=== PATIENT | female | born 1990 | race African-American/Black ===

== ENCOUNTER 2019-03-19 09:20 | Emergency (ER) | payer MEDICAID, OTHER ==
[~2019-03-19] VITALS: Ht 160 cm; Wt 81.6 kg
[2019-03-19] MEDS ORDERED: KETOROLAC 30 MG/ML VIAL IVP ONE (09:30)
[2019-03-19 09:38] LABS: BILIRUBIN,URINE NEGATIVE (NEGATIVE); CLARITY,URINE CLEAR; COLOR,URINE YELLOW; GLUCOSE, URINE (UA) NEGATIVE (NEGATIVE); KETONES,URINE 2+ (NEGATIVE); LEUKOCYTE ESTERASE ,URINE NEGATIVE (NEGATIVE); NITRITE,URINE NEGATIVE (NEGATIVE); PH,URINE 6 (5-9); PROTEIN,URINE NEGATIVE (NEGATIVE); UROBILINOGEN,URINE NORMAL (NORMAL)
--- NOTE | 2019-03-19 09:38 | ED Abdominal Pain ---
General Chief Complaint: Abdominal/GI Problems Stated Complaint: R SIDE ABD PAIN Source of Information: Patient Exam Limitations: No Limitations (ISIAH MORTON) History of Present Illness Date Seen by Provider: Mar 19, 2019 Time Seen by Provider: 09:20 Initial Comments The patient presents to the ER by private conveyance with chief complaint she started having moderate to severe pain starting last night after cooking chicken for dinner within an hour. She says she's had this pain before with certain foods that she eats but never this severe. Today she rates it as 8 out of 10, stabbing in the right upper quadrant. It does not radiate. She has no dysuria, hematuria. She does not take any control. She denies any chest pain shortness of breath cough fevers or chills or nausea. She has no history of abdominal surgeries or trauma. She has not taken any antacids or pain medicine. Last oral intake was last night at dinnertime. No significant medical history. (ISIAH MORTON) Allergies and Home Medications Allergies Coded Allergies: aspirin (Verified Allergy, Unknown, 03/19/19) Home Medications No Active Prescriptions or Reported Meds Patient Home Medication List Home Medication List Reviewed: Yes (ISIAH MORTON) Review of Systems Review of Systems Constitutional: No chills, No fever EENTM: No Blurred Vision, No Double Vision Respiratory: Denies Cough, Denies Shortness of Air Cardiovascular: Denies Chest Pain, Denies Edema Gastrointestinal: Denies Abdomen Distended; Abdominal Pain; Denies Constipated, Denies Diarrhea, Denies Nausea, Denies Vomiting Genitourinary: Denies Burning, Denies Discharge, Denies Drainage Musculoskeletal: No back pain, No joint pain (ISIAH MORTON) Past Sshmtsb-Fniadl-Brdyiu Hx Patient Social History Alcohol Use: Occasionally Uses Recreational Drug Use: No Smoking Status: Current Everyday Smoker Type Used: Cigarettes (0.1 ppd) Recent Foreign Travel: No Contact w/Someone Who Travel: No (ISIAH MORTON) Physical Exam Vital Signs Vital Signs - First Documented 03/19/19 09:28 Temp 97.0 Pulse 86 Resp 20 B/P (MAP) 106/78 (87) O2 Delivery Room Air (KIKA LOZADA MD) Vital Signs Capillary Refill : (ISIAH MORTON) Height/Weight/BMI Height: '" Weight: lbs. oz. kg; BMI Method: General Appearance: WD/WN, mild distress HEENT: PERRL/EOMI, pharynx normal Neck: full range of motion, normal inspection Respiratory: chest non-tender, lungs clear, normal breath sounds, no respiratory distress, no accessory muscle use Cardiovascular: normal peripheral pulses, regular rate, rhythm Peripheral Pulses: 2+ Dorsalis Pedis (R), 2+ Left Dors-Pedis (L) Gastrointestinal: normal bowel sounds (quiescent), soft, no organomegaly; No rebound; tenderness (right upper quadrant and epigastric region without Billingsley sign), other (no mesenteric signs) Extremities: normal range of motion, non-tender, normal capillary refill Neurologic/Psychiatric: alert, normal mood/affect, oriented x 3 (ISIAH MORTON) Progress/Results/Core Measures Results/Orders Lab Results Laboratory Tests Test 03/19/19 09:30 03/19/19 09:40 Range/Units Urine Color YELLOW Urine Clarity CLEAR Urine pH 6 5-9 Urine Specific [place] 1.020 1.016-1.022 Urine Protein NEGATIVE NEGATIVE Urine Glucose (UA) NEGATIVE NEGATIVE Urine Ketones 2+ H NEGATIVE Urine Nitrite NEGATIVE NEGATIVE Urine Bilirubin NEGATIVE NEGATIVE Urine Urobilinogen NORMAL NORMAL MG/DL Urine Leukocyte Esterase NEGATIVE NEGATIVE Urine RBC (Auto) 2+ H NEGATIVE Urine RBC 2-5 H /HPF Urine WBC 0-2 /HPF Urine Squamous Epithelial Cells 5-10 /HPF Urine Crystals NONE /LPF Urine Bacteria FEW H /HPF Urine Casts NONE /LPF Urine Mucus MODERATE H /LPF Urine Culture Indicated NO Urine Opiates Screen NEGATIVE NEGATIVE Urine Oxycodone Screen NEGATIVE NEGATIVE Urine Methadone Screen NEGATIVE NEGATIVE Urine Propoxyphene Screen NEGATIVE NEGATIVE Urine Barbiturates Screen NEGATIVE NEGATIVE Ur Tricyclic Antidepressants Screen NEGATIVE NEGATIVE Urine Phencyclidine Screen NEGATIVE NEGATIVE Urine Amphetamines Screen NEGATIVE NEGATIVE Urine Methamphetamines Screen NEGATIVE NEGATIVE Urine Benzodiazepines Screen NEGATIVE NEGATIVE Urine Cocaine Screen NEGATIVE NEGATIVE Urine Cannabinoids Screen POSITIVE H NEGATIVE White Blood Count 4.4 4.3-11.0 10^3/uL Red Blood Count 4.38 4.35-5.85 10^6/uL Hemoglobin 12.8 11.5-16.0 G/DL Hematocrit 38 35-52 % Mean Corpuscular Volume 87 80-99 FL Mean Corpuscular Hemoglobin 29 25-34 PG Mean Corpuscular Hemoglobin Concent 34 32-36 G/DL Red Cell Distribution Width 13.0 10.0-14.5 % Platelet Count 291 130-400 10^3/uL Mean Platelet Volume 10.5 H 7.4-10.4 FL Neutrophils (%) (Auto) 52 42-75 % Lymphocytes (%) (Auto) 37 12-44 % Monocytes (%) (Auto) 10 0-12 % Eosinophils (%) (Auto) 1 0-10 % Basophils (%) (Auto) 0 0-10 % Neutrophils # (Auto) 2.3 1.8-7.8 X 10^3 Lymphocytes # (Auto) 1.6 1.0-4.0 X 10^3 Monocytes # (Auto) 0.4 0.0-1.0 X 10^3 Eosinophils # (Auto) 0.0 0.0-0.3 10^3/uL Basophils # (Auto) 0.0 0.0-0.1 10^3/uL Sodium Level 139 135-145 MMOL/L Potassium Level 4.0 3.6-5.0 MMOL/L Chloride Level 105 98-107 MMOL/L Carbon Dioxide Level 24 21-32 MMOL/L Anion Gap 10 5-14 MMOL/L Blood Urea Nitrogen 15 7-18 MG/DL Creatinine 0.84 0.60-1.30 MG/DL Estimat Glomerular Filtration Rate > 60 BUN/Creatinine Ratio 18 Glucose Level 109 H 70-105 MG/DL Calcium Level 10.0 8.5-10.1 MG/DL Corrected Calcium 8.5-10.1 MG/DL Total Bilirubin 0.3 0.1-1.0 MG/DL Aspartate Amino Transf (AST/SGOT) 22 5-34 U/L Alanine Aminotransferase (ALT/SGPT) 17 0-55 U/L Alkaline Phosphatase 94 40-136 U/L C-Reactive Protein High Sensitivity 0.18 0.00-0.50 MG/DL Total Protein 8.4 H 6.4-8.2 GM/DL Albumin 4.7 H 3.2-4.5 GM/DL Lipase 17 8-78 U/L (KIKA LOZADA MD) Medications Given in ED Current Medications Medications Dose Ordered Sig/Kamryn Route Start Time Stop Time Status Last Admin Dose Admin Ketorolac Tromethamine 30 mg ONCE ONCE IVP 03/19/19 09:30 03/19/19 09:33 DC 03/19/19 09:44 30 MG (KIKA LOZADA MD) Vital Signs/I&O 03/19/19 03/19/19 09:28 09:44 Temp 97.0 97.0 Pulse 86 Resp 20 B/P (MAP) 106/78 (87) O2 Delivery Room Air (KIKA LOZADA MD) Progress Progress Note : Time: 09:37 Progress Note Plan to obtain ultrasound right upper quadrant give her Toradol for pain and will avoid a GI cocktail for now until she gets her ultrasound. Blood work and urinalysis. Bedside negative (ISIAH MORTON) Progress Note : Progress Note 1015: I received patient in checkout from Dr. Morton pending ultrasound. Patient is resting comfortable. 1205: Ultrasound complete and results noted. I talked with the patient. She has significant amount of gallstones and will need cholecystectomy at some point. She would like to get that done here if possible. I discussed the case with Dr. Johnson at 1210 and he will see the patient in office tomorrow with likely cholecystectomy later this week or first thing next week. This was discussed with the patient and agrees. Discharged home with return precautions. Patient verbalize understanding instructions and agreement with plan. (KIKA LOZADA MD) Diagnostic Imaging Diagonstic Imaging: Ultrasound Plain Films/CT/US/NM/MRI: abdomen (gallbladder) Reviewed: Reviewed by Me (ISIAH MORTON) Comments [facility], [place] NAME: CAMELIA SOTOAlia Love [facility] REC#: [id number] PT STATUS: REG ER : 1990 PHYSICIAN: ISIAH MORTON MD ADMIT DATE: 03/19/19/ER Draft Date of Exam:03/19/19 US GALLBLADDER [id number] PROCEDURE: US Gallbladder. TECHNIQUE: Multiple real-time grayscale images were obtained over the right upper quadrant in various projections. INDICATION: Right upper quadrant pain. There are no prior studies available for comparison. FINDINGS: The gallbladder is filled with calculi. The gallbladder wall is difficult to assess but does not seem to be abnormally thickened. There is no pericholecysti fluid to suggest acute cholecystitis. The common bile duct was not visualized. The liver does not appear to be enlarged. There is no focal mass involving the liver. Spectral and color-flow imaging of the portal vein shows that the vein is patent and that there is normal directional flow bilaterally. The right kidney and pancreas are unremarkable. The aorta and inferior vena cava were visualized were within normal limits. IMPRESSION: 1. The gallbladder is filled with calculi. There is no clear evidence for acute cholecystitis. The common bile duct could not be identified. 2. If clinical concern regarding an acute abnormality of the gallbladder persists, then a nuclear medicine hepatobiliary scan would be recommended further study. Dictated on workstation # [id number] Dict: 03/19/19 1147 Trans: 03/19/[address] [place] [address] [id number] Interpreted by: FOREST BAL MD Electronically signed by: (KIKA LOZADA MD) Departure Impression Primary Impression: Cholelithiasis Qualified Codes: K80.20 - Calculus of gallbladder without cholecystitis wit hout obstruction Disposition: HOME, SELF-CARE Condition: Stable Departure-Patient Inst. Decision time for Depature: 12:12 (KIKA LOZADA MD) Referrals: [facility] [place] (PCP/Family) Primary Care Physician MAXIMO JOHNSON DO Patient Instructions: Gallstones (DC) Add. Discharge Instructions: All discharge instructions reviewed with patient and/or family. Voiced understanding. Avoid fatty foods in your diet. Drink plenty of fluids. Follow-up with Dr. Johnson tomorrow in his office at 1:30 pm for paperwork and appointment. Return for worse pain, fever, vomiting, weakness, breathing problems or other concerns as needed. Drink plenty of fluids. You may take ibuprofen 800 mg every 8 hours as needed for pain. You may also take Tylenol/acetaminophen 1000 mg every 8 hours as needed for pain. Scripts No Active Prescriptions or Reported Meds Copy Copies To 1: MAXIMO JOHNSON TITUS J Mar 19, 2019 09:38 KIKA LOZADA MD Mar 19, 2019 12:17
[2019-03-19 09:45] LABS: BACTERIA,URINE FEW /HPF; WBC,URINE 0-2 /HPF
[2019-03-19 09:46] LABS: BASOPHILS % (AUTO) 0 % (0-10); EOSINOPHILS % (AUTO) 1 % (0-10); HEMATOCRIT 38 % (35-52); HEMOGLOBIN 12.8 G/DL (11.5-16.0); LYMPHOCYTES # (AUTO) 1.6 X 10^3 (1.0-4.0); LYMPHOCYTES % (AUTO) 37 % (12-44); MEAN CORPUSCULAR HEMOGLOBIN 29 PG (25-34); MEAN CORPUSCULAR HGB CONC 34 G/DL (32-36); MEAN CORPUSCULAR VOLUME 87 FL (80-99); MEAN PLATELET VOLUME 10.5 FL (7.4-10.4); MONOCYTES # (AUTO) 0.4 X 10^3 (0.0-1.0); MONOCYTES % (AUTO) 10 % (0-12); NEUTROPHILS # (AUTO) 2.3 X 10^3 (1.8-7.8); NEUTROPHILS % (AUTO) 52 % (42-75); PLATELET COUNT 291 10^3/uL (130-400); WHITE BLOOD COUNT 4.4 10^3/uL (4.3-11.0)
[2019-03-19 09:50] LABS: AMPHETAMINE SCREEN, URINE NEGATIVE (NEGATIVE); BARBITURATE SCREEN URINE NEGATIVE (NEGATIVE); BENZODIAZEPINES SCREEN URINE NEGATIVE (NEGATIVE); CANNABINOID SCREEN, URINE POSITIVE (NEGATIVE); COCAINE SCREEN URINE NEGATIVE (NEGATIVE); METHADONE STAT NEGATIVE (NEGATIVE); METHAMPHETAMINE SCREEN URINE S NEGATIVE (NEGATIVE); OPIATE SCREEN URINE NEGATIVE (NEGATIVE); OXYCODONE STAT NEGATIVE (NEGATIVE); PROPOXYPHENE STAT NEGATIVE (NEGATIVE); TRICYCLIC ANTIDEPRESSANTS SCRE NEGATIVE (NEGATIVE)
[2019-03-19 10:12] LABS: ALANINE AMINOTRANSFERASE 17 U/L (0-55); ALBUMIN 4.7 GM/DL (3.2-4.5); ALKALINE PHOSPHATASE 94 U/L (40-136); BILIRUBIN,TOTAL 0.3 MG/DL (0.1-1.0); BUN/CREATININE RATIO 18; CARBON DIOXIDE 24 MMOL/L (21-32); CHLORIDE 105 MMOL/L (98-107); CREATININE SERUM 0.84 MG/DL (0.60-1.30); GFR ESTIMATED > 60; GLUCOSE 109 MG/DL (70-105); LIPASE 17 U/L (8-78); SODIUM 139 MMOL/L (135-145); TOTAL PROTEIN 8.4 GM/DL (6.4-8.2)
--- NOTE | 2019-03-19 10:30 | NUR ---
WENT TO PT RM TO LET HER KNOW WE ARE STILL WAITING FOR US AND THE PT WAS ASLEEP.
--- NOTE | 2019-03-19 11:04 | NUR ---
PT SLEEPING WHEN US STAFF ARRIVES TO TAKE PT. PT STATES NO PAIN AT THIS TIME.
--- NOTE | 2019-03-19 12:01 | Diagnostic Imaging Report ---
PROCEDURE: US Gallbladder. TECHNIQUE: Multiple real-time grayscale images were obtained over the right upper quadrant in various projections. INDICATION: Right upper quadrant pain. There are no prior studies available for comparison. FINDINGS: The gallbladder is filled with calculi. The gallbladder wall is difficult to assess but does not seem to be abnormally thickened. There is no pericholecystic fluid to suggest acute cholecystitis. The common bile duct was not visualized. The liver does not appear to be enlarged. There is no focal mass involving the liver. Spectral and color-flow imaging of the portal vein shows that the vein is patent and that there is normal directional flow bilaterally. The right kidney and pancreas are unremarkable. The aorta and inferior vena cava were visualized were within normal limits. IMPRESSION: 1. The gallbladder is filled with calculi. There is no clear evidence for acute cholecystitis. The common bile duct could not be identified. 2. If clinical concern regarding an acute abnormality of the gallbladder persists, then a nuclear medicine hepatobiliary scan would be recommended further study. Dictated by: Dictated on workstation # [id number]
[2019-03-19 12:28] VITALS: BP 126/78
== END 2019-03-19 12:28 | disposition home or self-care (01) ==
LOC: ER 09:22
DX: K80.20 Calculus of gallbladder without cholecystitis without obstruction (principal); F17.210 Nicotine dependence, cigarettes, uncomplicated; Z88.6 Allergy status to analgesic agent
CPT/HCPCS: 36415; 76705; 80053; 80306; 81000; 83690; 84703; 85025; 86141; 96374

== ENCOUNTER 2019-03-21 10:34 | Outpatient (CLI) | payer MEDICAID ==
[~2019-03-21] VITALS: Ht 160 cm; Wt 81.6 kg
[2019-03-22] MEDS ORDERED: DOCU-143 PO (11:00)
[2019-03-22] MEDS ORDERED: ACHD5005 PO (11:00)
== END 2019-03-21 13:26 ==
LOC: PREOP 10:34
PROVIDERS: ATTEND Surgery
DX: Z01.818 Encounter for other preprocedural examination (principal)

== ENCOUNTER 2019-03-22 07:31 | Day surgery (SDC) | payer MEDICAID ==
[2019-03-22] VITALS (10 sets, daily range): BP systolic 111–125; BP diastolic 64–90
[~2019-03-22] VITALS: Ht 160 cm; Wt 81.3 kg
[2019-03-22] MEDS ORDERED: ceFAZolin 2 GM/50 ML NS 50 ML IV ONE (07:45)
--- OUTSIDE RECORDS SUMMARY | 2019-03-22 07:59 | XMS REPORT | Continuity of Care Document ---
Author Organization Unknown Address Unknown Allergies There is no data. Medications There is no data. Problems There is no data. Procedures There is no data. Results Test Result Range CBC - 01/30/19 10:44 WHITE BLOOD CELL COUNT 5.2 Thousand/uL 3.8-10.8 RED BLOOD CELL COUNT 4.08 Million/uL 3.80-5.10 HEMOGLOBIN 11.8 g/dL 11.7-15.5 HEMATOCRIT 36.1 % 35.0-45.0 MCV 88.5 fL 80.0-100.0 MCH 28.9 pg 27.0-33.0 MCHC 32.7 g/dL 32.0-36.0 RDW 12.9 % 11.0-15.0 PLATELET COUNT 255 Thousand/uL 140-400 MPV 11.3 fL 7.5-12.5 ABSOLUTE NEUTROPHILS 2293 cells/uL 3883-6284 ABSOLUTE LYMPHOCYTES 2272 cells/uL 850-3900 ABSOLUTE MONOCYTES 504 cells/uL 200-950 ABSOLUTE EOSINOPHILS 99 cells/uL 15-500 ABSOLUTE BASOPHILS 31 cells/uL 0-200 NEUTROPHILS 44.1 % NRG LYMPHOCYTES 43.7 % NRG MONOCYTES 9.7 % NRG EOSINOPHILS 1.9 % NRG BASOPHILS 0.6 % NRG SUREPATH PAP RFX HPV mRNA E6/E7 - 01/30/19 10:44 CLINICAL INFORMATION: NRG LMP: NRG PREV. PAP: UNKNOWN NRG PREV. 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 Visit Date/Time Discharge Status Pt. Type Provider Facility Loc./Unit Complaint [id number] 03/19/2019 08:20:00 ACT Outpatient [facility] [id number] 01/30/2019 10:20:00 Document Registration
[2019-03-22] MEDS ORDERED: CATHETER FLUSH 10 ML SYR IV PRN (08:00)
[2019-03-22] MEDS ORDERED: MIDAZOLAM 2 MG/2 ML (VERSED) VIAL IV ONE (08:15)
[2019-03-22] MEDS ORDERED: BUPIVACAINE 0.5% 30 ML (SENSORCAINE) VIAL ONE (08:38)
[2019-03-22] MEDS ORDERED: LIDOCAINE/EPI 1%-1:100,000 (XYLOCAINE) 20ML ONE (08:38)
[2019-03-22] MEDS ORDERED: ONDANSETRON 4 MG/2 ML (SDV) Z0FRAN ONE (09:04)
[2019-03-22] MEDS ORDERED: LIDOCAINE PF 2% 5 ML (XYLOCAINE) VIAL ONE (09:04)
[2019-03-22] MEDS ORDERED: SEVOFLURANE (ULTANE) 15 ML INHAL SOLN ONE (09:04)
[2019-03-22] MEDS ORDERED: NEOSTIGMINE 1 MG/ML 5 ML SYRINGE ONE (09:04)
[2019-03-22] MEDS ORDERED: GLYCOPYRROLATE 0.2 MG/ML (ROBINUL) 2 ML VIAL ONE ×2 (09:04→10:53)
[2019-03-22] MEDS ORDERED: fentaNYL INJECTION 100 MCG/2 ML AMP ONE (09:04)
[2019-03-22] MEDS ORDERED: MIDAZOLAM 2 MG/2 ML (VERSED) VIAL ONE (09:04)
[2019-03-22] MEDS ORDERED: DEXAMETHASONE 10 MG/ML (DECADRON) 1 ML VIAL ONE (09:04)
[2019-03-22] MEDS ORDERED: ROCURONIUM 10 MG/ML 5 ML SYRINGE IV ONE (09:04)
[2019-03-22] MEDS ORDERED: proPOfol 200 MG/20 ML (DIPRIVAN) VIAL IV ONE (09:04)
[2019-03-22] MEDS: LACTATED RINGERS 1,000 ML IV PRN ×2 (09:19→10:15)
--- NOTE | 2019-03-22 09:20 | NUR ---
PATIENT STATES NO QUESTIONS FOR DR. JOHNSON. DR. OLIVERA GAVE VERBAL ORDER TO GO AHEAD AND GIVE VERSED 2MG IV
--- NOTE | 2019-03-22 09:48 | Progress Note-Pre Operative ---
Pre-Operative Progress Note H&P Reviewed The H&P was reviewed, patient examined and no changes noted. Date Seen by Provider: Mar 22, 2019 Time Seen by Provider: 09:48 Date H&P Reviewed: Mar 22, 2019 Time H&P Reviewed: 09:48 Pre-Operative Diagnosis: symptomatic cholelithiasis MAXIMO JOHNSON DO Mar 22, 2019 09:48
[2019-03-22] MEDS ORDERED: HYDROmorphone 2 MG/ML VIAL (DILAUDID) ONE ×2 (10:25→11:15)
[2019-03-22] MEDS ORDERED: ACHD5005 PO (11:00)
[2019-03-22] MEDS ORDERED: DOCU-143 PO (11:00)
--- NOTE | 2019-03-22 11:00 | Progress Note-Post Operative ---
Post-Operative Progess Note Surgeon (s)/Air Sampling And Monitoring (s) Surgeon MAXIMO JOHNSON DO Air Sampling And Monitoring: Dr. Holland Pre-Operative Diagnosis symptomatic cholelithiasis Post-Operative Diagnosis same Procedure & Operative Findings Date of Procedure 03/22/19 Procedure Performed/Findings lap viky c ioc Anesthesia Type gen Estimated Blood Loss Estimated blood loss (mL): min Specimens/Packing Specimens Removed gallbladder MAXIMO JOHNSON DO Mar 22, 2019 11:00
--- NOTE | 2019-03-22 11:02 | Discharge Inst-Simple/Standard ---
Discharge Inst-Standard Discharge Medications New, Converted or Re-Newed RX: RX on Chart Patient Instructions/Follow Up Plan of Care/Instructions/FU: 2 weeks Jatin Activity as Tolerated: No Discharge Diet: Regular Diet Other Inst to Patient Follow up Appt: Make appointment for 2 weeks. Instructions: No lifting greater than 10 pounds. No strenuous activity. May shower in 24 hours, no tub bath or soaking. Use incentive spirometer at home as directed. No Smoking Skin/Wound Care: You have special glue over incisions it will fall off on its own. Symptoms to Report: Appetite Changes, Extremity Discoloration, Numbness/Tingling, Swelling Increased, Bleeding Excessive, Eyesight Changes, Pain Increased, Urine Color Change, Constipation(Persistent), Fever over 101 degree F, Pain/Pressure in chest, Urinating Difficulty, Cough Up/Vomit Blood, Heart Beat Irreg/Pounding, Pain/Pressure in jaw, Vaginal Bleeding Increase, Cramps in feet or legs, Lightheadedness, Pain/Pressure in shoulder, Diarrhea(Persistent), Memory Changes Suddenly, Questions/Concerns, Weight gain consecutive days, Dizziness/Fainting, Nausea/Vomiting, Shortness of Breath, Weight gain over 2 pounds. If eyes or skin turn yellow notify physician. If questions or concerns contact your physician Or seek help at emergency department. MAXIMO JOHNSON DO Mar 22, 2019 11:02
[2019-03-22] MEDS ORDERED: ONDANSETRON 4 MG/2 ML (SDV) Z0FRAN IVP PRN (11:15)
[2019-03-22] MEDS ORDERED: HYDROmorphone 2 MG/ML VIAL (DILAUDID) IV ONE (11:15)
[2019-03-22] MEDS ORDERED: HYDROcodone/APAP 5 MG/325 MG (LORTAB) TAB ONE (12:18)
--- NOTE | 2019-03-22 12:18 | Diagnostic Imaging Report ---
EXAMINATION: Fluoroscopy. INDICATION: Abdominal pain. TECHNIQUE: Fluoroscopic assistance was provided for Dr. Steiner. 21 seconds of fluoroscopy time was utilized. 46 spot images of the abdomen were obtained. FINDINGS: There are laparoscopic devices in place. There has been opacification of the common bile duct via cystic duct catheter. The duct does not seem to be dilated, and there is no definite defect within the duct to indicate a retained calculus. Contrast is seen extending into the small bowel. IMPRESSION: Fluoroscopic assistance was provided for Dr. Steiner. Dictated by: Dictated on workstation # [id number]
[2019-03-22] MEDS ORDERED: HYDROcodone/APAP 5 MG/325 MG (LORTAB) TAB PO ONE (12:30)
--- NOTE | 2019-03-22 14:37 | Anesthesia-General Post-Op ---
General Patient Condition Mental Status/LOC: Same as Preop Cardiovascular: Satisfactory Nausea/Vomiting: Absent Respiratory: Satisfactory Pain: Controlled Complications: Absent Post Op Complications Complications None Follow Up Care/Instructions Patient Instructions None needed. Anesthesia/Patient Condition Patient Condition Patient was seen after the procedure and she was doing well, no complaints, stable vital signs, no apparent adverse anesthesia problems. ZEINAB RODRIGUEZ DO Mar 22, 2019 14:37
--- NOTE | 2019-03-22 21:10 | OPERATIVE REPORT ---
DATE OF SERVICE: 03/22/2019 PREOPERATIVE DIAGNOSIS: Symptomatic cholelithiasis. POSTOPERATIVE DIAGNOSIS: Symptomatic cholelithiasis. PROCEDURE PERFORMED: Laparoscopic cholecystectomy with intraoperative cholangiogram. SURGEON: Maximo Steiner DO. CLINICAL TRAINING SPECIALIST: Christopher Holland DO, assisted in retraction, dissection and closure. ANESTHESIA: General. ESTIMATED BLOOD LOSS: Minimal. COMPLICATIONS: None. INDICATIONS: The patient is a 28-year-old female with symptomatic gallstones. She understands risks and benefits of procedure and wished to proceed with procedure. Consent was signed in the chart. DESCRIPTION OF PROCEDURE: The patient was taken to the operating suite, was prepped and draped in sterile fashion. Surgical pause was performed. A 12 mm incision made just above the umbilicus. Cautery was used to dissect down to the fascia, which was then scored, grasped and elevated and the abdomen was then entered. A #0 Vicryl was placed in a [id number] fashion for closure at the end of the case. A balloon trocar was inserted into the abdomen and pneumoperitoneum was achieved. Under direct visualization of the laparoscope, a 5 mm trocar was placed in subxiphoid region and two 5 mm trocars were placed in the right upper quadrant. Gallbladder was grasped, elevated. There were some adhesions to the gallbladder, which were then taken down with both blunt and cautery dissection. The cystic duct and cystic artery were then dissected out. Clips were placed on the proximal and distal portion of the cystic artery and the distal portion of the cystic duct. The cystic duct was then partially transected. Arrow catheter was inserted and secured and a cholangiogram was performed. There were no filling defects. Contrast made its way into the duodenum without difficulty. The catheter was removed. Clips were placed on the proximal portion of the cystic and the cystic duct and the artery were then completely transected. Hook cautery was used to dissect the gallbladder from the gallbladder fossa achieving hemostasis. Once removed, it was placed in an Endobag and removed through the 12 mm trocar site. The abdomen was then irrigated with copious amounts of irrigation and suctioned. Hemostasis was achieved. The abdomen was then desufflated. Trocars were removed. The 12 mm fascial defect was then closed using the previously placed #0 Vicryl. The skin was then closed using 4-0 Monocryl in subcuticular fashion. The abdomen washed and dried and Skin Affix was placed over the incisions. The patient tolerated procedure well without any complications. She was taken to recovery room in stable condition. Job ID: [id number] DocumentID: [id number] Dictated Date: 03/22/2019 15:35:23 Crab Picker Date: 03/22/2019 21:09:47 Dictated By: MAXIMO STEINER DO
== END 2019-03-22 13:45 | disposition home or self-care (01) ==
LOC: SDC 07:31
PROVIDERS: ATTEND Surgery
DX: K80.12 Calculus of gallbladder with acute and chronic cholecystitis without obstruction (principal); F17.210 Nicotine dependence, cigarettes, uncomplicated; E66.9 Obesity, unspecified; Z68.31 Body mass index [BMI] 31.0-31.9, adult
CPT/HCPCS: 84703; 87081